=== PATIENT | female | born 1980 | race Caucasian/White ===

== ENCOUNTER 2016-12-27 15:56 | Emergency (ER) | payer MEDICAID, MEDICARE ==
[2016-12-27 16:30] VITALS: BP 109/65
--- NOTE | 2016-12-27 17:14 | RAD ---
INDICATION: Right hand pain. TECHNIQUE: 4 views of the right hand were obtained. FINDINGS: The bones are in normal alignment. No fracture is seen. Joint spaces appear maintained. IMPRESSION: NEGATIVE EXAM.
--- NOTE | 2016-12-27 17:48 | UC ---
Hand/Wrist HPI - HPI Summary HPI Summary: FOUR DAYS OF RIGHT WRIST AND HAND PAIN. 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 HISTORY OF GANGLION CYST REPAIR. NO KNOWN TRAUMA. - History Of Current Complaint Chief Complaint: UCGeneralIllness Stated Complaint: RIGHT HAND INJURY Time Seen by Provider: 12/27/16 16:01 Hx Obtained From: Patient Hx Last Menstrual Period: states does not get periods Onset/Duration: Gradual Onset, Lasting Days, Still Present Severity Initially: Mild Severity Currently: Moderate Pain Intensity: 0 Pain Scale Used: 0-10 Numeric Character Of Pain: Dull, Aching Aggravating Factor(s): Flexion, Extension Alleviating: Rest Associated Signs And Symptoms: Positive: Negative Related History: Dominant Hand Right - Allergies/Home Medications Allergies/Adverse Reactions: Allergies Allergy/AdvReac Type Severity Reaction Status Date / Time Penicillins Allergy Unknown Rash Verified 12/27/16 16:04 Ciprofloxacin [From Cipro] Allergy Rash Verified 12/27/16 16:04 Clindamycin Allergy Rash Verified 12/27/16 16:03 Doxycycline Allergy Rash Verified 12/27/16 16:04 Esomeprazole [From Nexium] Allergy Rash Verified 12/27/16 16:03 Nitrofurantoin Allergy Rash Verified 12/27/16 16:03 [From Macrobid] Rabeprazole [From Aciphex] Allergy Rash Verified 12/27/16 16:03 Sulfamethoxazole Allergy Rash Verified 12/27/16 16:03 w/Trimethoprim [From Bactrim] Home Medications: Home Medications celeCOXIB CAP* [CeleBREX CAP*] 200 mg PO DAILY 12/27/16 [History Confirmed 12/27] PMH/Surg Hx/FS Hx/Imm Hx Previously Healthy: Yes - Surgical History Surgical History: Yes Surgery Procedure, Year, and Place: Gall bladder removal 1992. Scoliosis/ Pastrana jazmin placement. R ganglion cyst removal. tonsillectomy - Social History Occupation: Employed Part-time, Disabled Lives: [place] Alcohol Use: None Substance Use Type: None Smoking Status (MU): Never Smoked Tobacco Review of Systems Constitutional: Negative Skin: Negative Eyes: Negative ENT: Negative Respiratory: Negative Cardiovascular: Negative Gastrointestinal: Negative Genitourinary: Negative Motor: Negative Neurovascular: Negative Musculoskeletal: Arthralgia, Myalgia Neurological: Negative Psychological: Negative All Other Systems Reviewed And Are Negative: Yes Physical Exam Triage Information Reviewed: Yes Appearance: Well-Appearing, No Pain Distress, Well-Nourished Vital Signs: Initial Vital Signs Temp 98 F 12/27/16 16:07 Pulse 60 12/27/16 16:07 Resp 18 12/27/16 16:07 BP 109/65 12/27/16 16:07 Pulse Ox 100 12/27/16 16:07 Vital Signs Reviewed: Yes Eye Exam: Normal ENT Exam: Normal ENT: Positive: Normal ENT inspection, TMs normal Dental Exam: Normal Neck exam: Normal Neck: Positive: Supple, Nontender Respiratory Exam: Normal Respiratory: Positive: Chest non-tender, Lungs clear, Normal breath sounds, No respiratory distress, No accessory muscle use Cardiovascular Exam: Normal Cardiovascular: Positive: RRR, No Murmur, Pulses Normal Abdominal Exam: Normal Musculoskeletal: Positive: Strength Intact, ROM Intact, No Edema, Other: - RIGHT HAND 234 METACARPAL PAIN TO PALPATION Neurological Exam: Normal Psychological Exam: Normal Skin Exam: Normal Hand/Wrist Course/Dx - Differential Dx/Diagnosis Differential Diagnosis/HQI/PQRI: Carpal Tunnel Syndrome, Fracture, Sprain, Strain, Tendonitis, Tenosynovitis, Other - GANGLION CYST Provider Diagnoses: RIGHT HAND SPRAIN Discharge - Discharge Plan Condition: Stable Disposition: HOME Patient Education Materials: Hand Sprain (ED) Forms: *Work Release Referrals: [facility] [Outside] Ben Fontana MD [Medical Doctor] - Cleveland Lott MD [Primary Care Provider] - Additional Instructions: PHYSICAL THERAPY REFERRAL: You have been prescribed physical therapy. Treatments may include stretching, exercise, application of heat or cold, and other modalities. After an injury, PT can reduce swelling and pain. In recovery, PT is used to restore mobility and strength. Your specific treatment goals are: ____X_ Reduction of Swelling (EGS, US, ice as needed) __X___ Pain Reduction (EGS, US, ice as needed) TENS Pack Fitting and Instruction Wound Hydrotherapy ___X__ Preservation of Mobility ___X__ Faith of Mobility ___X__ Strength Faith ____X_ Work or Sports Hardening This instruction sheet also serves as your PHYSICAL THERAPY REFERRAL! Please take it with you to the therapist, so he/she will be aware of your diagnosis and treatment plan. You may see the physical therapist of your choice for these treatments, but may wish to check with your insurance to be sure the provider you select is covered. It's important to see the doctor to whom you have been referred for follow up.
== END 2016-12-27 17:40 | disposition home or self-care (01) ==
LOC: UCEAST 15:56
DX: S63.91XA Sprain of unspecified part of right wrist and hand, initial encounter (principal); X50.3XXA Overexertion from repetitive movements, initial encounter; Y93.89 Activity, other specified; Y92.9 Unspecified place or not applicable; Y99.0 Civilian activity done for income or pay; Z90.49 Acquired absence of other specified parts of digestive tract; Z88.1 Allergy status to other antibiotic agents; Z88.0 Allergy status to penicillin; Z88.2 Allergy status to sulfonamides
CPT/HCPCS: 99212; G0463

== ENCOUNTER 2017-02-23 08:06 | Emergency (ER) | payer MEDICARE, MEDICAID ==
[2017-02-23] MEDS ORDERED: Ketorolac INJ* 30 MG/ML 1 ML VIAL IV PUSH ONE (08:31)
[2017-02-23] MEDS ORDERED: NS 0.9% 1000 ML* 500 ML IV ONE (08:31)
[2017-02-23] MEDS ORDERED: Ketorolac INJ* 30 MG/ML 1 ML VIAL ONE (08:34)
[2017-02-23 09:01] LABS: Hematocrit 46 % (35-47); Hemoglobin 15.9 g/dl (12.0-16.0); Mean Corpuscular HGB Conc 35 g/dl (31-36); Mean Corpuscular Hemoglobin 32 pg (27-31); Mean Corpuscular Volume 91 fL (80-97); Mean Platelet Volume 8 um3 (7.4-10.4); Red Blood Count 4.98 10^6/ul (4.0-5.4); Red Cell Distribution Width 12 % (10.5-15); White Blood Count 7.4 10^3/ul (3.5-10.8)
--- NOTE | 2017-02-23 09:04 | RAD ---
INDICATION: Left flank pain. COMPARISON: Comparison is made with a prior study from September 29, 2012. TECHNIQUE: A CT scan of the abdomen and pelvis was performed without intravenous or oral contrast. Contiguous axial sections were obtained from the lung bases through the symphysis pubis. Images were reconstructed in the coronal and sagittal planes. The exam is limited due to streak artifact from a lateral dorsal lumbar spine fusion. FINDINGS: There is minimal atelectasis at the left lung base. No pleural effusion is present. The liver and spleen are normal in size without significant focal abnormality on this noncontrast study. The patient is status post cholecystectomy. The pancreas appears to be within normal limits. Images are limited by streak artifact as noted above. The left adrenal gland is obscured due to streak artifact. The right adrenal gland appears to be within normal limits. Evaluation of the left kidney is limited due to streak artifact. No renal calculi or hydronephrosis is seen. No ureteral or bladder calculi are seen. The aorta is normal in caliber without significant calcific plaque. No significant enlarged retroperitoneal lymph nodes are seen. The stomach, small and large bowel appear nondistended. The appendix is within normal limits. There is no evidence for diverticulitis or colitis. There is a small. Local hernia containing fat. The uterus is anteverted and normal in size. No free intraperitoneal air or fluid is seen. The patient is status post lateral spinal fusion on the left side from the T11-L3 levels. There is a moderate levo scoliosis. IMPRESSION: 1. LIMITED STUDY SECONDARY TO LEFT SIDE LATERAL SPINAL FUSION OBSCURING PORTIONS OF THE LEFT KIDNEY AND COLLECTING SYSTEM. NO RENAL CALCULI OR GROSS EVIDENCE FOR HYDRONEPHROSIS. CONSIDER A RENAL ULTRASOUND TO FURTHER EVALUATE THE LEFT KIDNEY FOR HYDRONEPHROSIS AND EVALUATION OF URETERAL JETS. 2. STATUS POST CHOLECYSTECTOMY.
[2017-02-23 09:13] LABS: BUN/Creatinine Ratio 14.3 (8-20); C Reactive Protein 1.97 mg/L (< 5.00); EGFR African American 82.6 (>60); EGFR Non-African American 64.2 (>60); Globulin 2.8 g/dL (2-4); Potassium 3.7 mmol/L (3.5-5.0); Total Bilirubin 0.5 mg/dL (0.2-1.0); Total Protein 6.8 g/dL (6.4-8.9)
[2017-02-23 09:47] LABS: Urine Bacteria 1+ (Absent); Urine Bilirubin Negative (Negative); Urine Glucose Negative (Negative); Urine Nitrite Negative (Negative)
[2017-02-23 09:53] VITALS: BP 137/87
--- NOTE | 2017-02-23 10:48 | ED ---
Kayla Oscar Emily, scribed for Marko Loza MD on 02/23/17 at 0835 . Abdominal Pain/Female - HPI Summary HPI Summary: This patient is a 36 year old F presenting to [facility] accompanied by family with a chief complaint of L abd pain that began yesterday morning. The patient rates the pain 10/10 in severity. 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 Symptoms not alleviated by Tylenol or a heating pad. Patient denies nausea and vomiting. Pt reports having similar pain previously that was alleviated by Tylenol. - History of Current Complaint Chief Complaint: EDFlankPain Stated Complaint: LEFT FLANK PAIN, ABD PAIN Time Seen by Provider: 02/23/17 08:25 Hx Obtained From: Patient Hx Last Menstrual Period: states does not get periods Onset/Duration: Sudden Onset, Lasting Days Timing: Constant Severity Initially: Severe Severity Currently: Severe Pain Intensity: 10 Pain Scale Used: 0-10 Numeric Aggravating Factor(s): Nothing Associated Signs and Symptoms: Negative: Nausea, Vomiting Allergies/Adverse Reactions: Allergies Allergy/AdvReac Type Severity Reaction Status Date / Time Penicillins Allergy Unknown Rash Verified 12/27/16 16:04 Ciprofloxacin [From Cipro] Allergy Rash Verified 12/27/16 16:04 Clindamycin Allergy Rash Verified 12/27/16 16:03 Doxycycline Allergy Rash Verified 12/27/16 16:04 Esomeprazole [From Nexium] Allergy Rash Verified 12/27/16 16:03 Nitrofurantoin Allergy Rash Verified 12/27/16 16:03 [From Macrobid] Rabeprazole [From Aciphex] Allergy Rash Verified 12/27/16 16:03 Sulfamethoxazole Allergy Rash Verified 12/27/16 16:03 w/Trimethoprim [From Bactrim] PMH/Surg Hx/FS Hx/Imm Hx Previously Healthy: No Endocrine/Hematology History: Denies: Hx Diabetes, Hx Thyroid Disease Cardiovascular History: Denies: Hx Hypercholesterolemia, Hx Hypertension, Hx Pacemaker/ICD, Hx Peripheral Vascular Disease Respiratory History: Denies: Hx Asthma GI History: Reports: Hx Gastroesophageal Reflux Disease Musculoskeletal History: Reports: Hx Arthritis - knees, back, wrists, Hx Scoliosis Denies: Hx Osteoporosis Sensory History: Denies: Hx Cataracts, Hx Contacts or Glasses, Hx Glaucoma, Hx Hearing Aid Opthamlomology History: Denies: Hx Cataracts, Hx Contacts or Glasses, Hx Glaucoma Neurological History: Denies: Hx Headaches, Hx Seizures, Hx Transient Ischemic Attacks (TIA) Psychiatric History: Reports: Hx Anxiety, Hx Depression, Hx Panic Disorder - ANXIETY - Surgical History Surgery Procedure, Year, and Place: Gall bladder removal 1992. Scoliosis/ Pastrana jazmin placement. R ganglion cyst removal. tonsillectomy Infectious Disease History: No Infectious Disease History: Denies: Traveled Outside the [place] in Last 30 Days - Family History Known Family History: Negative: Cardiac Disease, Diabetes - Social History Alcohol Use: None Hx Substance Use: No Substance Use Type: Reports: None Hx Tobacco Use: No Smoking Status (MU): Never Smoked Tobacco Review of Systems Negative: Fever Positive: Abdominal Pain. Negative: Vomiting, Nausea All Other Systems Reviewed And Are Negative: Yes Physical Exam - Summary Physical Exam Summary: VITAL SIGNS: Reviewed. GENERAL: Patient is a well-developed and nourished female who is lying comfortable in the stretcher. ~Patient is not in any acute respiratory distress. HEAD AND FACE: Normocephalic and atraumatic. EYES: PERRLA, EOMI x 2, No injected conjunctiva. EARS: Hearing grossly intact. Ear canals and tympanic membranes are WNL. MOUTH: Oropharynx within normal limits. NECK: Supple, trachea is midline, no adenopathy, no JVD. CHEST: Symmetric, no tenderness at palpation LUNGS: Clear to auscultation bilaterally. No wheezing or crackles. CVS: RRR, S1 and S2 present, no murmurs or gallops appreciated. ABDOMEN: Soft. No signs of distention. Positive bowel sounds. No rebound no guarding, and no masses palpated. No abdominal bruit or pulsations. LUQ tenderness. EXTREMITIES: FROM in all major joints, no edema, no cyanosis or clubbing. NEURO: Alert and oriented x 3. No acute neurological deficits. Speech is normal. SKIN: Dry and warm Triage Information Reviewed: Yes Vital Signs On Initial Exam: Initial Vitals Temp Pulse Resp BP Pulse Ox 98.3 F 115 20 136/88 99 02/23/17 08:08 02/23/17 08:08 02/23/17 08:08 02/23/17 08:08 02/23/17 08:08 Vital Signs Reviewed: Yes - [place] Coma Scale Coma Scale Total: 15 Diagnostics - Vital Signs Vital Signs Temp Pulse Resp BP Pulse Ox 02/23/17 08:08 98.3 F 115 20 136/88 99 - Laboratory Lab Results: Lab Results 02/23/17 02/23/17 02/23/17 Range/Units 08:50 08:50 08:50 WBC 7.4 (3.5-10.8) 10^3/ul RBC 4.98 (4.0-5.4) 10^6/ul Hgb 15.9 (12.0-16.0) g/dl Hct 46 (35-47) % MCV 91 (80-97) fL MCH 32 H (27-31) pg MCHC 35 (31-36) g/dl RDW 12 (10.5-15) % Plt Count 180 (150-450) 10^3/ul MPV 8 (7.4-10.4) um3 Neut % (Auto) 74.6 (38-83) % Lymph % (Auto) 16.1 L (25-47) % [place] % (Auto) 8.9 (1-9) % Eos % (Auto) 0.1 (0-6) % Baso % (Auto) 0.3 (0-2) % Absolute Neuts (auto) 5.5 (1.5-7.7) 10^3/ul Absolute Lymphs (auto) 1.2 (1.0-4.8) 10^3/ul Absolute Monos (auto) 0.7 (0-0.8) 10^3/ul Absolute Eos (auto) 0 (0-0.6) 10^3/ul Absolute Basos (auto) 0 (0-0.2) 10^3/ul Absolute Nucleated RBC 0 10^3/ul Nucleated RBC % 0 Sodium 140 (133-145) mmol/L Potassium 3.7 (3.5-5.0) mmol/L Chloride 108 (101-111) mmol/L Carbon Dioxide 26 (22-32) mmol/L Anion Gap 6 (2-11) mmol/L BUN 14 (6-24) mg/dL Creatinine 0.98 H (0.51-0.95) mg/dL Est GFR ( Amer) 82.6 (>60) Est GFR (Non-Af Amer) 64.2 (>60) BUN/Creatinine Ratio 14.3 (8-20) Glucose 93 (70-100) mg/dL Calcium 9.0 (8.6-10.3) mg/dL Total Bilirubin 0.50 (0.2-1.0) mg/dL AST 11 L (13-39) U/L ALT 12 (7-52) U/L Alkaline Phosphatase 67 (34-104) U/L Total Creatine Kinase 26 (10-223) U/L C-Reactive Protein 1.97 (< 5.00) mg/L B-Natriuretic Peptide 162 H ( - 100) pg/mL Total Protein 6.8 (6.4-8.9) g/dL Albumin 4.0 (3.2-5.2) g/dL Globulin 2.8 (2-4) g/dL Albumin/Globulin Ratio 1.4 (1-3) Lipase 17 (11.0-82.0) U/L Result Diagrams: 02/23/17 08:50 02/23/17 08:50 Lab Statement: Any lab studies that have been ordered have been reviewed, and results considered in the medical decision making process. - CT A/P CT Interpretation Completed By: Radiologist - CT A/P READ BY READIOLOGIST REVEALS 1. LIMITED STUDY SECONDARY TO LEFT SIDE LATERAL SPINAL FUSION OBSCURING PORTIONS OF THE LEFT KIDNEY AND COLLECTING SYSTEM. NO RENAL CALCULI OR GROSS EVIDENCE FOR HYDRONEPHROSIS. CONSIDER A RENAL ULTRASOUND TO FURTHER EVALUATE THE LEFT KIDNEY FOR HYDRONEPHROSIS AND EVALUATION OF URETERAL JETS. 2. STATUS POST CHOLECYSTECTOMY. ED PHYSICIAN HAS REVIEWED THIS RADIOLOGY REPORT AND AGREES. Abdominal Pain Fem Course/Dx - Course Course Of Treatment: This patient is a 36 year old F [facility] with a chief complaint of L abd pain that began yesterday morning. The patient rates the pain 10/10 in severity. 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 Symptoms not alleviated by Tylenol or a heating pad. Patient denies nausea and vomiting. Pt reports having similar pain previously that was alleviated by Tylenol. In the ED course an IV access was obtained. Patient was placed in a primary care sales representative. Patient was started with IV fluids. Labs without any significant abnormality except for BNP 162. UA is contaminated therefore UA cultures will be send. Patient reports her last BM was 2 days ago. Usually she goes every day. LMP was 1 week ago. Abdominal and pelvic CT impression: 1. LIMITED STUDY SECONDARY TO LEFT SIDE LATERAL SPINAL FUSION OBSCURING PORTIONS OF THE LEFT KIDNEY AND COLLECTING SYSTEM. NO RENAL CALCULI OR GROSS EVIDENCE FOR HYDRONEPHROSIS. CONSIDER A RENAL ULTRASOUND TO FURTHER EVALUATE THE LEFT KIDNEY FOR HYDRONEPHROSIS AND EVALUATION OF URETERAL JETS. 2. STATUS POST CHOLECYSTECTOMY. Patient given Toradol for pain. After medications she reports feeling better. Since no kidney stones and r/o other intraabdominal pathology with a CT I will assume symptoms more related to constipation. No LLQ pain therefore I will advise to take increase water intake and increase fruit and vegetables. I discussed all the findings and test results with the patient. Patient was instructed to return to the emergency room immediately if any of the symptoms return or worsens. They were explained the possibility of an early abdominal pathology which was not detected at this time despite the physical exam and testing. They understand and agree. Abdominal exam before discharge: Soft, NT. No signs of distention. BS present. No rebound no guarding, and no masses palpated. Patient is alert and oriented and hemodynamically stable. Patient is to follow up with primary care physician in the next 2 to 3 days. Patient agree and understands. - Diagnoses Differential Diagnosis: Positive: Bowel Obstruction, Constipation, Ovarian Cyst , Pancreatitis, Renal Colic, Urinary Tract Infection Provider Diagnoses: Flank pain, Constipation Discharge - Discharge Plan Condition: Stable Disposition: HOME Patient Education Materials: Flank Pain (ED) Referrals: Cleveland Lott MD [Primary Care Provider] - 3 Days The documentation as recorded by the Kayla corrigan Emily accurately reflects the service I personally performed and the decisions made by me, Marko Loza MD.
== END 2017-02-23 10:16 | disposition home or self-care (01) ==
LOC: ED 08:06
DX: R10.32 Left lower quadrant pain (principal); K59.00 Constipation, unspecified; F41.0 Panic disorder [episodic paroxysmal anxiety]; F32.9 Major depressive disorder, single episode, unspecified; Z90.49 Acquired absence of other specified parts of digestive tract; Z88.1 Allergy status to other antibiotic agents; Z88.0 Allergy status to penicillin; Z88.2 Allergy status to sulfonamides
CPT/HCPCS: 36415; 74176; 80053; 81003; 81015; 82550; 83690; 83880; 85025; 86140; 87086; 96361; 96374; 99282; J1885

== ENCOUNTER 2017-08-01 18:55 | Emergency (ER) | payer MEDICARE, MEDICAID ==
[2017-08-01 19:18] VITALS: BP 131/75
--- NOTE | 2017-08-01 19:27 | UC ---
Abdominal Pain Female HPI - HPI Summary HPI Summary: Pt presents with generalized abdominal cramping, nausea, vomiting, and diarrhea since this morning. She tells me that she woke up this morning with not feeling well and her stomach felt "bad". As the day progressed she had 4-5 instances of loose stools and felt nauseous. She vomited around 1600. Has been able to tolerate water and crackers since that time. No diarrhea since this morning. She does not have a period as she is on depo. She is not currently sexually active. Denies fever, chills, SOB, chest pain, dysuria, vaginal symptoms, hx of renal calculi. - History of Current Complaint Chief Complaint: UCAbdominalPain Stated Complaint: ABD PAIN,VOMITING,DIARRHEA Time Seen by Provider: 08/01/17 19:27 Hx Obtained From: Patient Hx Last Menstrual Period: depo shot Onset/Duration: Sudden Onset Severity Initially: Severe Severity Currently: Severe Pain Intensity: 10 Pain Scale Used: 0-10 Numeric Location: Diffuse Allergies/Adverse Reactions: Allergies Allergy/AdvReac Type Severity Reaction Status Date / Time ciprofloxacin [From Cipro] Allergy Rash Verified 08/01/17 19:21 clindamycin Allergy Rash Verified 08/01/17 19:21 doxycycline Allergy Rash Verified 08/01/17 19:21 esomeprazole [From Nexium] Allergy Rash Verified 08/01/17 19:22 metronidazole [From Flagyl] Allergy Rash Verified 08/01/17 19:23 nitrofurantoin Allergy Rash Verified 08/01/17 19:22 Penicillins Allergy Rash Verified 08/01/17 19:20 rabeprazole [From Aciphex] Allergy Rash Verified 08/01/17 19:20 sulfamethoxazole Allergy Rash Verified 08/01/17 19:20 [From Bactrim] trimethoprim [From Bactrim] Allergy Rash Verified 08/01/17 19:20 PMH/Surg Hx/FS Hx/Imm Hx GI/ History: Gastroesophageal Reflux Psychological History: Depression - Surgical History Surgical History: Yes Surgery Procedure, Year, and Place: Gall bladder removal 1992. Scoliosis/ Pastrana jazmin placement. R ganglion cyst removal. tonsillectomy - Family History Known Family History: Negative: Cardiac Disease, Diabetes - Social History Alcohol Use: None Substance Use Type: None Smoking Status (MU): Never Smoked Tobacco Review of Systems Constitutional: Negative Skin: Negative ENT: Negative Respiratory: Negative Cardiovascular: Negative Gastrointestinal: Abdominal Pain, Vomiting, Diarrhea, Nausea Genitourinary: Negative Musculoskeletal: Negative Neurological: Negative Psychological: Negative All Other Systems Reviewed And Are Negative: Yes Physical Exam Triage Information Reviewed: Yes Appearance: Well-Appearing, No Pain Distress, Obese Vital Signs: Initial Vital Signs Temp 98.9 F 08/01/17 19:15 Pulse 63 08/01/17 19:15 Resp 18 08/01/17 19:15 BP 131/75 08/01/17 19:15 Pulse Ox 100 08/01/17 19:15 Vital Signs Reviewed: Yes Neck: Positive: Supple, Nontender, No Lymphadenopathy Respiratory: Positive: Lungs clear, Normal breath sounds, No respiratory distress, No accessory muscle use Cardiovascular: Positive: RRR, No Murmur, Pulses Normal Abdomen Description: Positive: No Organomegaly, Soft, Other: - Generalized abdominal tenderness - mild. Negative: CVA Tenderness (R), CVA Tenderness (L), Distended, Guarding, Hepatomegaly, McBurney's Point Tenderness, Peritoneal Signs , Pulsatile Mass Bowel Sounds: Positive: Present Neurological: Positive: Alert Psychological: Positive: Age Appropriate Behavior Skin: Negative: rashes, significant lesion(s) Abd Pain Female Course/Dx - Course Course Of Treatment: Suspect viral gastroenteritis. I discussed with the patient that we can try to treat her symptoms with po Zofran - if her symptoms worsen or persist, she should go directly to the ED. She was agreeable to this plan and preferred to try outpatient therapy as opposed to going directly to the ED. - Differential Dx/Diagnosis Provider Diagnoses: Viral gastroenteritis Discharge - Sign-Out/Discharge Documenting (check all that apply): Discharge - Discharge Plan Condition: Stable Disposition: HOME Prescriptions: Ondansetron TAB* [Zofran 4 MG Tab*] 4 mg PO Q8HR PRN #10 tab PRN Reason: Nausea Patient Education Materials: Gastroenteritis (DC) Referrals: Cleveland Lott MD [Primary Care Provider] - Additional Instructions: If you develop a fever, shortness of breath, chest pain, worsening pain/diarrhea /vomiting, new or worsening symptoms - please call your PCP or go to the ED. - Billing Disposition and Condition Condition: STABLE Disposition: HOME
[2017-08-01] MEDS ORDERED: Ondansetron ODT TAB* 4 MG PO ONE (19:53)
== END 2017-08-01 20:00 | disposition home or self-care (01) ==
LOC: UCEAST 18:55
DX: A08.4 Viral intestinal infection, unspecified (principal); Z32.02 Encounter for pregnancy test, result negative; K21.9 Gastro-esophageal reflux disease without esophagitis; F32.9 Major depressive disorder, single episode, unspecified; Z88.1 Allergy status to other antibiotic agents; Z88.0 Allergy status to penicillin; Z88.2 Allergy status to sulfonamides; Z88.8 Allergy status to other drugs, medicaments and biological substances
CPT/HCPCS: 81003; 84702; 99211; G0463

== ENCOUNTER 2018-06-23 09:20 | Emergency (ER) | payer MEDICARE, MEDICAID ==
--- NOTE | 2018-06-23 09:49 | ED ---
Abdominal Pain/Female - HPI Summary HPI Summary: Patient is a 37-year-old female with hx of constipation and peptic ulcers presenting with 9/10 left abdominal pain that began about 1 hour ago. Patient describes the pain as sharp and constant on the left side, and is worse with movements like standing. Patient denies any medications to help with the pain. She notes 2 episodes of loose stools yesterday, and increased frequency of bowel movements the past 4 days. She also notes she has been eating high-fiver foods to avoid constipation and takes mirilax daily. Admits to nausea. Patient denies any blood or changes in color of bm. Patient denies any vomiting, fever, chills, or recent illness. Denies urinary symptoms. Denies chest pain, SOB, or lightheadedness. Patient receives depo shots, has been taking for years. Denies hx of colitis or ovarian cysts. Hx of cholecystectomy. - History of Current Complaint Chief Complaint: EDAbdPain Stated Complaint: ABD PAIN Hx Obtained From: Patient Hx Last Menstrual Period: depo shot Onset/Duration: Lasting Hours Timing: Constant Severity Initially: Severe Pain Intensity: 9 Pain Scale Used: 0-10 Numeric Location: Diffuse - Left abdomen and side Radiates: No Character: Sharp Aggravating Factor(s): Movement - standing Alleviating Factor(s): Nothing Associated Signs and Symptoms: Positive: Nausea. Negative: Fever, Cough, Chest Pain, Dizzy, Constipation, Blood in Stool, Urinary Symptoms, Vomiting, Diarrhea Allergies/Adverse Reactions: Allergies Allergy/AdvReac Type Severity Reaction Status Date / Time ciprofloxacin [From Cipro] Allergy Rash Verified 06/23/18 09:22 clindamycin Allergy Rash Verified 06/23/18 09:22 doxycycline Allergy Rash Verified 06/23/18 09:22 esomeprazole [From Nexium] Allergy Rash Verified 06/23/18 09:22 metronidazole [From Flagyl] Allergy Rash Verified 06/23/18 09:22 nitrofurantoin Allergy Rash Verified 06/23/18 09:22 Penicillins Allergy Rash Verified 06/23/18 09:22 rabeprazole [From Aciphex] Allergy Rash Verified 06/23/18 09:22 sulfamethoxazole Allergy Rash Verified 06/23/18 09:22 [From Bactrim] trimethoprim [From Bactrim] Allergy Rash Verified 06/23/18 09:22 PMH/Surg Hx/FS Hx/Imm Hx Previously Healthy: Yes Endocrine/Hematology History: Denies: Hx Diabetes, Hx Thyroid Disease Cardiovascular History: Denies: Hx Hypercholesterolemia, Hx Hypertension, Hx Pacemaker/ICD, Hx Peripheral Vascular Disease Respiratory History: Denies: Hx Asthma GI History: Reports: Hx Gall Bladder Disease - gallbladder removed , Hx Gastroesophageal Reflux Disease, Hx Ulcer - peptic ulcers from NSAID use Musculoskeletal History: Reports: Hx Arthritis - knees, back, wrists, Hx Scoliosis Denies: Hx Osteoporosis Sensory History: Denies: Hx Cataracts, Hx Contacts or Glasses, Hx Glaucoma, Hx Hearing Aid Opthamlomology History: Denies: Hx Cataracts, Hx Contacts or Glasses, Hx Glaucoma Neurological History: Denies: Hx Headaches, Hx Seizures, Hx Transient Ischemic Attacks (TIA) Psychiatric History: Reports: Hx Anxiety, Hx Depression, Hx Panic Disorder - ANXIETY - Surgical History Surgery Procedure, Year, and Place: Gall bladder removal 1992. Scoliosis/ Pastrana jazmin placement. R ganglion cyst removal. tonsillectomy Infectious Disease History: No Infectious Disease History: Denies: Traveled Outside the [place] in Last 30 Days - Family History Known Family History: Negative: Cardiac Disease, Diabetes - Social History Occupation: Employed Full-time Lives: [place] Alcohol Use: None Hx Substance Use: No Substance Use Type: Reports: None Hx Tobacco Use: No Smoking Status (MU): Never Smoked Tobacco Review of Systems Negative: Fever, Chills, Fatigue Eyes: Negative ENT: Negative Cardiovascular: Negative Negative: Palpitations, Chest Pain Respiratory: Negative Negative: Shortness Of Breath, Cough Positive: Abdominal Pain - left side , Nausea. Negative: Vomiting, Diarrhea Positive: burning. 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 Negative: Leg Edema Left, Leg Edema Right Abdomen Description: Positive: Soft, Other: - Moderate tenderness to palpation of LLQ. Negative: CVA Tenderness (R), CVA Tenderness (L) Bowel Sounds: Positive: Present Musculoskeletal: Positive: Normal, Strength/ROM Intact Neurological: Positive: Normal, Sensory/Motor Intact, Alert, Oriented to Person Place, Time, CN Intact II-III Psychiatric: Positive: Normal AVPU Assessment: Alert Diagnostics - Vital Signs Vital Signs Temp Pulse Resp BP Pulse Ox 06/23/18 09:25 53 100 06/23/18 09:23 98.3 F 57 17 136/87 100 - Laboratory Result Diagrams: 06/23/18 10:00 06/23/18 10:00 Lab Statement: Any lab studies that have been ordered have been reviewed, and results considered in the medical decision making process. Abdominal Pain Fem Course/Dx - Course Course Of Treatment: Patient presents to the ed with left abdominal pain that began this morining. Pain is constant, sharp, and increases with standing. Patient has noted increased bowel movements the past few days, and loose stool yesterday. Nausea noted without vomiting. Hx of constipation, peptic ulcers, and cholecystectomy. Physical exam reveals soft abdomen. Moderate tenderness to palpation of LUQ and LLQ. No CVA tenderness. Patient recieved IV, zofran, and morphine for pain and nausea, as well as buspar as requested by patient as part of regular regimen. Labs revealed WBC 3.3. CT scan reveals portal hypertension with splenomegaly. Discussed these findings with patient. Patient reported experiencing cold-like symptoms 1 week ago. Hodgeman-spot performed and was negative. Dr. Womack from GI was consulted and stated he would meet with patient in outpatient setting. Patient has an appointment with PCP tomorrow. Advised close follow-up with GI and hematology. PCP f/u arranged for 1pm tomorrow for pt. No contact activities, Hodgeman neg. - Diagnoses Differential Diagnosis: Positive: Bowel Obstruction, Constipation, Diverticulitis, Ovarian Cyst, Urinary Tract Infection Provider Diagnoses: Portal hypertension, Splenomegaly Discharge - Sign-Out/Discharge Documenting (check all that apply): Patient Departure Patient Received Moderate/Deep Sedation with Procedure: No - Discharge Plan Condition: Improved Disposition: HOME Patient Education Materials: Portal Hypertension (ED) Referrals: Kamryn Ruiz MD [Medical Doctor] - Nabil Womack MD [Medical Doctor] - Cleveland Lott MD [Primary Care Provider] - Additional Instructions: Follow up 1pm tomorrow with Dr Nicole in the [facility]. Have them schedule you for prompt follow-up with GI doctor and also hematology. Your pain is caused by an enlarged spleen. Do not do any sports or contact activities. Return with increased abdominal pain, weakness, passing out, worse , new symptoms or other concerns. - Billing Disposition and Condition Condition: IMPROVED Disposition: Home - Attestation Statements Document Initiated by Loretta: No
[2018-06-23] MEDS ORDERED: NS 0.9% 1000 ML** 1,000 ML IV ONE (09:53)
[2018-06-23] MEDS ORDERED: Morphine VIAL* 4 MG/ML VIAL (1 ml vial) IV ONE (09:55)
[2018-06-23] MEDS ORDERED: Ondansetron INJ* 2 MG/ML VIAL IV ONE (09:55)
[2018-06-23 10:02] LABS: Urine Appearance Clear; Urine Bilirubin Negative (Negative); Urine Blood Negative (Negative); Urine Color Straw; Urine Glucose Negative (Negative); Urine Ketones Negative (Negative); Urine Nitrite Negative (Negative); Urine Protein Negative (Negative); Urine Specific Gravity 1.002 (1.010-1.030); Urine Urobilinogen Negative (Negative)
[2018-06-23] MEDS ORDERED: Morphine VIAL* 10 MG/ML 1 ML VIAL ONE (10:06)
[2018-06-23 10:09] LABS: ABS Basophils 0 10^3/ul (0-0.2); ABS Eosinophils 0 10^3/ul (0-0.6); ABS Lymphocytes 1.1 10^3/ul (1.0-4.8); ABS Monocytes 0.5 10^3/ul (0-0.8); ABS Neutrophils 1.6 10^3/ul (1.5-7.7); ABS Nucleated RBC 0 10^3/ul; Eosinophil % 1.1 %; Hematocrit 44 % (35-47); Hemoglobin 15.1 g/dl (12.0-16.0); Lymphocyte % 32.6 %; Mean Corpuscular HGB Conc 34 g/dl (31-36); Mean Corpuscular Hemoglobin 31 pg (27-31); Mean Corpuscular Volume 91 fL (80-97); Mean Platelet Volume 7.4 fL (7.4-10.4); Nucleated Red Blood Cells % 0.3; Platelet Count 178 10^3/ul (150-450); Red Blood Count 4.88 10^6/ul (4.00-5.40); Red Cell Distribution Width 13 % (10.5-15); White Blood Count 3.3 10^3/ul (3.5-10.8)
[2018-06-23 10:24] LABS: INR 0.94 (0.77-1.02)
[2018-06-23 10:27] LABS: Albumin 3.9 g/dL (3.2-5.2); Albumin/Globulin Ratio 1.4 (1-3); C Reactive Protein 1.79 mg/L (<8.01); Calcium 9.2 mg/dL (8.6-10.3); EGFR African American 81.1 (>60); Globulin 2.8 g/dL (2-4); Potassium 4.1 mmol/L (3.5-5.0); Total Bilirubin 0.5 mg/dL (0.2-1.0); Total Protein 6.7 g/dL (6.4-8.9)
[2018-06-23] MEDS ORDERED: Iohexol 300* (CONTRAST) 10 ML SDV IV ONE (10:54)
[2018-06-23] MEDS ORDERED: Morphine VIAL* 10 MG/ML 1 ML VIAL IV ONE (11:00)
[2018-06-23] MEDS ORDERED: busPIRone TAB* 10 MG PO ONE (12:43)
[2018-06-23] MEDS ORDERED: Ibuprofen TAB* 400 MG PO ONE (13:27)
[2018-06-23] MEDS ORDERED: Acetaminophen TAB* 325 MG PO ONE (13:49)
[2018-06-23 14:00] VITALS: BP 123/87
== END 2018-06-23 13:58 | disposition home or self-care (01) ==
LOC: ED 09:20
DX: I10 Essential (primary) hypertension (principal); R16.1 Splenomegaly, not elsewhere classified; R10.9 Unspecified abdominal pain; R11.0 Nausea
CPT/HCPCS: 36415; 74177; 80053; 81003; 83605; 83690; 85025; 85610; 86140; 86308; 96361; 96374; 96375; 99283; A9270-GY; J2270; J2405; Q9967

== ENCOUNTER 2018-10-16 16:03 | Emergency (ER) | payer MEDICARE, MEDICAID ==
[2018-10-16 16:14] VITALS: BP 111/58
--- NOTE | 2018-10-16 16:18 | UC ---
General HPI - HPI Summary HPI Summary: 38 yo female c/o swelling pain LLE last couple days. No fever / chills. No sob / cp / palpitations. No GI issues. She spends a lot of time on her feet. Has compression stockings, but doesn't wear them. Did sprain her Left ankle in the winter (apprx Jun), wears lace up ankle brace for comfort. No recent injury. No p/d/focal weakness. - History of Current Complaint Chief Complaint: UCLowerExtremity Stated Complaint: LEG COMPLAINT Time Seen by Provider: 10/16/18 16:07 Hx Obtained From: Patient Hx Last Menstrual Period: depo shot Pain Intensity: 7 - Allergy/Home Medications Allergies/Adverse Reactions: Allergies Allergy/AdvReac Type Severity Reaction Status Date / Time ciprofloxacin [From Cipro] Allergy Rash Verified 10/16/18 16:14 clindamycin Allergy Rash Verified 10/16/18 16:14 doxycycline Allergy Rash Verified 10/16/18 16:14 esomeprazole [From Nexium] Allergy Rash Verified 10/16/18 16:14 ibuprofen Allergy See Comment Verified 10/16/18 16:15 metronidazole [From Flagyl] Allergy Rash Verified 10/16/18 16:14 nitrofurantoin Allergy Rash Verified 10/16/18 16:14 Penicillins Allergy Rash Verified 10/16/18 16:14 rabeprazole [From Aciphex] Allergy Rash Verified 10/16/18 16:14 sulfamethoxazole Allergy Rash Verified 10/16/18 16:14 [From Bactrim] trimethoprim [From Bactrim] Allergy Rash Verified 10/16/18 16:14 Home Medications: Home Medications Menthol/Zinc Oxide [Gold Garcia Medicated Body Powdr] 113 gm TP 10/16/18 [History] Pantoprazole Sodium [Protonix] 20 mg PO 10/16/18 [History] Polyethylene Glycol 3350 [Miralax] 17 gm PO 10/16/18 [History] PMH/Surg Hx/FS Hx/Imm Hx Previously Healthy: No - see hpi. feels well today other than swelling - Surgical History Surgical History: Yes Surgery Procedure, Year, and Place: Gall bladder removal 1992. Scoliosis/ Pastrana jazmin placement. R ganglion cyst removal. tonsillectomy - Family History Known Family History: Negative: Cardiac Disease, Diabetes - Social History Alcohol Use: None Substance Use Type: None Smoking Status (MU): Never Smoked Tobacco Review of Systems All Other Systems Reviewed And Are Negative: Yes Constitutional: Positive: Negative Skin: Positive: Other - see hpi Eyes: Positive: Negative ENT: Positive: Negative Respiratory: Positive: Other - see hpi Cardiovascular: Positive: Other - see hpi Gastrointestinal: Positive: Other - see hpi Genitourinary: Positive: Other - see hpi Motor: Positive: Other - see hpi Neurovascular: Positive: Other - see hpi Musculoskeletal: Positive: Other: - see hpi Neurological: Positive: Other - see hpi Psychological: Positive: Negative Is Patient Immunocompromised?: No Physical Exam Triage Information Reviewed: Yes Appearance: Well-Appearing - sitting up, conversing eaily. NAD., Well-Nourished Vital Signs: Initial Vital Signs Temp 99.3 F 10/16/18 16:10 Pulse 58 10/16/18 16:10 Resp 18 10/16/18 16:10 BP 111/58 10/16/18 16:10 Pulse Ox 100 10/16/18 16:10 Vital Signs Reviewed: Yes Eye Exam: Normal - grossly nad ENT Exam: Normal - grossly benign Neck exam: Normal Neck: Positive: Supple, Nontender Respiratory Exam: Normal Respiratory: Positive: Chest non-tender, Lungs clear, Normal breath sounds, No respiratory distress, No accessory muscle use Cardiovascular Exam: Normal Cardiovascular: Positive: RRR, Pulses Normal, Brisk Capillary Refill Abdominal Exam: Normal Abdomen Description: Positive: Nontender Musculoskeletal Exam: Other - BLE + lymphedema. + visible large and small venous varicosities. Feet warm to touch. Good cap refill. DP / PT palpable. + bottle neck evidence at superior margin of socks and superior margin of ankle brace. Edema LLE slightly more than RLE. No saroj venous cord. Mild post calf tender. No post knee tender. No focal redness. Neurological Exam: Normal - grossly nonfocal. + distal LT sensation present. Psychological Exam: Normal - conversing easily and appropriately Skin Exam: Normal - no visible or reported rash. See MS. Course/Dx - Course Course Of Treatment: U/s LLE noted, no dvt. S/sx c/w venous insuff / lymphedema / symptomatic varicosities. Reviewed importance of f/u pcp. Has compression stockings, encouraged to use them. Elevate. Seek medical attention for any worse or new or unresolved problems. Questions as posed answered to the best of my ability. - Diagnoses Provider Diagnosis: Lymphedema, Venous insufficiency of both lower extremities, Varicose veins of both lower extremities Discharge - Sign-Out/Discharge Documenting (check all that apply): Patient Departure All imaging exams completed and their final reports reviewed: Yes - Discharge Plan Condition: Stable Disposition: HOME Patient Education Materials: Leg Edema (ED), Venous Insufficiency (DC) Referrals: Cleveland Lott MD [Primary Care Provider] - Additional Instructions: Please wear your compression stockings as recommended by your doctor (at least during the day). Elevate frequently and as much as possible. Follow up with your doctor in the next 1-2 weeks. Seek medical attention for worse or new problems. - Billing Disposition and Condition Condition: STABLE Disposition: Home
== END 2018-10-16 17:36 | disposition home or self-care (01) ==
LOC: UCEAST 16:03
DX: I89.0 Lymphedema, not elsewhere classified (principal); I87.2 Venous insufficiency (chronic) (peripheral); I83.93 Asymptomatic varicose veins of bilateral lower extremities; Z88.6 Allergy status to analgesic agent; Z88.1 Allergy status to other antibiotic agents; Z88.0 Allergy status to penicillin; Z88.2 Allergy status to sulfonamides; Z88.8 Allergy status to other drugs, medicaments and biological substances
CPT/HCPCS: 99212; G0463